=== PATIENT | female | born 1965 | race Caucasian/White ===

== ENCOUNTER 2017-01-10 18:22 | Emergency (ER) | payer OTHER ==
[~2017-01-10] VITALS: Ht 160 cm; Wt 63.5 kg
[2017-01-10 18:43] VITALS: BP 116/76
[2017-01-10] MEDS ORDERED: TRAMADOL HCL50 MG ORAL (19:05)
[2017-01-10] MEDS ORDERED: IBUPROFEN600 MG ORAL (19:05)
[2017-01-10] MEDS ORDERED: traMADol 50mg tab ORAL ONE (19:15)
[2017-01-10 19:16] VITALS: BP 116/76
--- NOTE | 2017-01-10 20:35 | Emergency Room Report ---
History of Present Illness General Chief Complaint: Head, Face, Neck Trauma Source: Patient Present Illness HPI The patient is a 51-year-old female presenting for nasal injury. The patient states that she was at work yesterday and the metal handle of a lilian hit her nose. She denies loss of consciousness. Pain is described as an 8/10 dull ache and does not radiate. Worse with touch. She denies any bleeding or any other fluid from within the nose. She denies other symptoms including nausea, vomiting, fever, chills, dizziness, blurred vision, confusion, forgetfulness Allergies: Coded Allergies: No Known Allergies (Unverified , 01/10/17) Patient History Past Medical History: see triage record Pertinent Family History: none Reviewed Nursing Documentation: PMH: Agreed, PSxH: Agreed Nursing Documentation-PMH Past Medical History: No Stated History Review of Systems All Other Systems: negative except mentioned in HPI Physical Exam Vital Signs Date Time Temp Pulse Resp B/P Pulse Ox O2 Delivery O2 Flow Rate FiO2 01/10/17 18:39 97.7 70 20 116/76 99 Room Air Sp02 EP Interpretation: reviewed, normal General Appearance: no apparent distress, alert, GCS 15, non-toxic Head: normocephalic, atraumatic Eyes: bilateral eye PERRL, bilateral eye normal inspection ENT: normal pharynx, no angioedema, normal voice, uvula midline, other - Nose is slightly deviated to the L. There is edema and ecchymosis over the nasal bridge. TTP. No septal hematoma Medical Decision Making PA Attestation Dr. Chong is my supervising physician. Patient management was discussed with my supervising physician Diagnostic Impression: Primary Impression: Nasal fracture Qualified Codes: S02.2XXA - Fracture of nasal bones, initial encounter for closed fracture ER Course The patient is a 51-year-old female presenting for nasal injury Ddx considered include but not limited to sprain/strain, fracture, contusion, among others PE: vitals WNL. NAD Nose is slightly deviated to the L. There is edema and ecchymosis over the nasal bridge. TTP. No septal hematoma. Nares are patent. No ecchymosis surrounding eyes. Otherwise exam unremarkable The patient is diagnosed with a nasal fracture clinically and needs to followup with workers compensation and ENT. She is given pain medication and will be discharged with the same. ER precautions given Last Vital Signs Date Time Temp Pulse Resp B/P Pulse Ox O2 Delivery O2 Flow Rate FiO2 01/10/17 19:16 97.7 70 20 116/76 99 Room Air Status: improved Disposition: HOME, SELF-CARE Condition: Improved Scripts Tramadol Hcl* (ULTRAM*) 50 Mg Tablet 50 MG ORAL Q6H Y for For Pain, #10 TAB 0 Refills Prov: MARK WHALEN P.A. 01/10/17 Ibuprofen* (MOTRIN*) 600 Mg Tablet 600 MG ORAL Q8H Y for For Pain, #30 TAB 0 Refills Prov: MARK WHALEN P.A. 01/10/17 Referrals: NON PHYSICIAN (PCP) Patient Instructions: Nasal Fracture Additional Instructions: I discussed my findings with the patient. All questions and concerns have been answered. Treatment and medication compliance have been addressed. I advised the patient that they need to follow up with PMD in 3-5 days. Return to ED if pain remains or worsens, numbness or tingling occurs, new rash is noticed, fever is noticed, or if needed for any reason. Patient verbalized understanding of discharge instructions. MARK WHALEN Jan 10, 2017 20:35
== END 2017-01-10 19:17 | disposition home or self-care (01) ==
LOC: EMR 18:50
DX: S02.2XXA Fracture of nasal bones, initial encounter for closed fracture (principal); W22.8XXA Striking against or struck by other objects, initial encounter; Y92.512 Supermarket, store or market as the place of occurrence of the external cause; Y99.0 Civilian activity done for income or pay
CPT/HCPCS: 99284